=== PATIENT | female | born 1985 | race Caucasian/White ===

== ENCOUNTER → 2018-09-17 09:35 | Outpatient (CLI) | payer OTHER, SELFPAY ==
[2018-09-17 10:29] LABS: Add Manual Diff / Slide Review NO; Basophils Absolute Auto 0 /uL (0-100); Basophils Percent Auto 0.3 % (0-2); Eosinophils Absolute Auto 100 /uL (0-450); Eosinophils Percent Auto 1.6 % (2-4); Hematocrit 42.5 % (36-46); Hemoglobin 14.3 g/dL (12.0-16.0); Lymphocytes Absolute Auto 800 /uL (1100-4500); Mean Corpuscular HGB Conc 33.7 % (30-36); Mean Corpuscular Hemoglobin 29.9 PG (26-34); Mean Corpuscular Volume 88.7 fL (80-100); Monocytes Absolute Auto 600 /uL (0-900); Monocytes Percent Auto 14.3 % (3-14); Neutrophils Absolute Auto 2700 /uL (1500-7000); Neutrophils Percent Auto 63.8 % (50-75); Platelet Count 214 X10^3/uL (150-400); Red Blood Cell Count 4.79 X10^6/uL (4.0-5.2); Red Cell Distribution Width 12.7 % (11.6-14.8); White Blood Cell Count 4.2 X10^3/uL (4.5-11.0)
[2018-09-17 11:18] LABS: Hepatitis B Surface Antigen NEGATIVE s/c (NEGATIVE); Rubella Antibody IgG 66.5 IU/mL (>15)
[2018-09-17 11:37] LABS: HIV 1 and 2 Antibody NEGATIVE (NEGATIVE); Hep C Virus Ab w/Reflex Quant NEGATIVE s/c (NEGATIVE)
[2018-09-17 12:42] LABS: Appearance Urine UA CLEAR; Bilirubin Urine UA NEGATIVE (NEGATIVE); Color Urine UA YELLOW; Glucose Urine UA NEGATIVE (Negative); Ketones Urine UA NEGATIVE (NEGATIVE); Leukocyte Esterase Urine UA TRACE (NEGATIVE); Nitrite Urine UA NEGATIVE (Negative); Occult Blood Urine UA TRACE-LYSED (Negative); Protein Urine UA NEGATIVE (Negative); Urobilinogen Urine UA 0.2 E.U./dL (0.2); pH Urine UA 6.5 (4.5-8.0)
[2018-09-17 12:57] LABS: Bacteria Urine Many (>30); Culture Indicated Urine Specimen Cultured; RBC Urine 0-1/HPF (0-5/HPF); Squamous Epithelial Cell Urine 0-1 /HPF (0-5/HPF); Transitional Epi Cells Urine 0-1/HPF (0-5/HPF); WBC Urine 0-1/HPF (0-5/HPF)
[2018-09-19 15:18] LABS: RPR Screen Nonreactive (Nonreactive)
== END ==
PROVIDERS: Family Provider Family Medicine; PCP Family Medicine; Visit Provider Family Medicine
DX: Z34.81 Encounter for supervision of other normal pregnancy, first trimester (principal)
CPT/HCPCS: 36415; 80055; 81003; 81015; 86703; 86787; 86803; 86850; 86900; 86901; 87086

== ENCOUNTER → 2018-12-11 08:49 | Outpatient (CLI) | payer OTHER, SELFPAY ==
--- NOTE | 2018-12-11 08:50 | DI.US.S_ITS ---
PROCEDURE: US OB >= 14 WEEKS FETUS INDICATIONS: ANATOMY OUTSIDE/PRIOR DATING DATA: Last menstrual period (LMP): 07/23/18. LMP-based estimated date of delivery (SAHARA): 04/29/19. First dating scan (date and location): 12/11/18. Estimated date of delivery (SAHARA) from first dating scan: 05/01/19. TECHNIQUE: Real-time scanning was performed of the fetus, with image documentation and biometric measurements. Endovaginal scanning: No COMPARISON: None. FINDINGS: General: A single living intrauterine gestation is present. Presentation: Vertex. Placenta: Placental position is anterior, without previa. Amniotic fluid index: 13.7 cm, normal range is 5-24 cm. heart rate: 147 beats per minute. Maternal cervical canal: 5.1 cm long. Normal lower limit is 2.5 cm. biometrics: Biparietal diameter: 19 weeks 5 days Head circumference: 19 weeks 6 days Abdominal circumference: 20 weeks 5 days Femur length: 19 weeks 2 days Estimated gestational age from initial scan: not applicable. Composite gestational age from present scan: 19 weeks 6 days Estimated weight and percentile: 330 g; 41st percentile Measurement variability for biometric dating: +/- 7 days from 14 weeks to 15 weeks 6 days gestation, +/- 10 days from 16 weeks to 21 weeks 6 days gestation, +/- 2 weeks from 22 weeks to 27 weeks 6 days gestation, +/- 3 weeks for 28 weeks gestation or later. weight reference: 4500 g or EFW >90/95% is considered macrosomia or large for gestational age. EFW <10% is small for gestational age. EFW 5% or less is considered intra-uterine growth restriction. Anatomic survey: Neuro: Ventricles are non-dilated at less than 10 mm. Cisterna magna is normal at 3-11 mm. Cerebellum is normal in size and morphology. Nuchal skin fold: Normal at less than 6 mm between 14-21 weeks gestational age. Face: Nose and lips, facial profile are normal. Spine: No evidence for spina bifida. Heart: 4-chambered heart is present, with normal ventricular outflow tracts. Diaphragm: Diaphragm is intact. Stomach: Left-sided stomach is present. Kidneys: No hydronephrosis. Normal is less than 5 mm in 2nd trimester, less than 7 mm in 3rd trimester. Cord: 3-vessel cord has orthotopic insertion. Bladder: Normal in size. Extremities: All 4 extremities identified. IMPRESSION: 1. Single living IUP with mean composite gestational age of 19 weeks 6 days corresponding to ultrasound SAHARA of 05/01/19. 2. Normal anatomic survey. Dictated by: Van EID Interpreted: Sydnie Alexis MD on 12/11/2018 at 10:15 Approved by: Sydnie Alexis M.D. on 12/11/2018 at 13:15
== END ==
PROVIDERS: PCP Family Medicine; Visit Provider Family Medicine
DX: Z36.89 Encounter for other specified antenatal screening (principal); Z3A.19 19 weeks gestation of pregnancy
CPT/HCPCS: 76811

== ENCOUNTER → 2019-02-04 09:53 | Outpatient (CLI) | payer OTHER, SELFPAY ==
[2019-02-04 11:25] LABS: Hematocrit 36.3 % (36-46); Hemoglobin 12.1 g/dL (12.0-16.0)
[2019-02-04 11:47] LABS: GTT (PREG) 1 Hour PP 50gm Dose 118 mg/dL (76-139)
== END ==
PROVIDERS: PCP Family Medicine; Visit Provider Family Medicine
DX: Z34.82 Encounter for supervision of other normal pregnancy, second trimester (principal); Z3A.26 26 weeks gestation of pregnancy
CPT/HCPCS: 36415; 82950; 85014; 85018

== ENCOUNTER → 2019-02-27 14:19 | Outpatient (CLI) | payer OTHER, SELFPAY ==
--- NOTE | 2019-02-27 14:22 | DI.US.S_ITS ---
PROCEDURE: US OB LIMITED INDICATIONS: INCREASED SIZE FOR DATES OUTSIDE/PRIOR DATING DATA: Last menstrual period (LMP): 07/23/18. LMP-based estimated date of delivery (SAHARA): 04/29/19. First dating scan (date and location): 12/11/18. Estimated date of delivery (SAHARA) from first dating scan: 05/01/19. TECHNIQUE: Real-time scanning was performed of the fetus, with image documentation and biometric measurements. COMPARISON: [facility], , OB >= 14 WEEKS FETUS, 12/11/2018, 8:58. FINDINGS: General: A single living intrauterine gestation is present. Presentation: Vertex. Placenta: Placental position is anterior, without previa. Amniotic fluid index: 19.3 cm, normal range is 5-24 cm. heart rate: 152 beats per minute. Maternal cervical canal: 6.2 cm long. Normal lower limit is 2.5 cm. biometrics: Biparietal diameter: 32 weeks 6 days Head circumference: 35 weeks 3 days Abdominal circumference: 32 weeks 5 days Femur length: 30 weeks 1 day Estimated gestational age from initial scan: 31 weeks 0 days Composite gestational age from present scan: 32 weeks 6 days Estimated weight and percentile: 1932 g; 79 percentile Measurement variability for biometric dating: +/- 7 days from 14 weeks to 15 weeks 6 days gestation, +/- 10 days from 16 weeks to 21 weeks 6 days gestation, +/- 2 weeks from 22 weeks to 27 weeks 6 days gestation, +/- 3 weeks for 28 weeks gestation or later. weight reference: 4500 g or EFW >90/95% is considered macrosomia or large for gestational age. EFW <10% is small for gestational age. EFW 5% or less is considered intra-uterine growth restriction. Other: Not applicable. IMPRESSION: Single living IUP redemonstrated and interval growth is within normal limits. Dictated by: Van EID Interpreted: Jerzy Alonso MD on 02/27/2019 at 15:48 Approved by: Elijah Rapp M.D. on 03/03/2019 at 9:34
== END ==
PROVIDERS: PCP Family Medicine; Visit Provider Family Medicine
DX: Z36.88 Encounter for antenatal screening for fetal macrosomia (principal); Z3A.31 31 weeks gestation of pregnancy
CPT/HCPCS: 76815

== ENCOUNTER → 2019-04-06 11:22 | Outpatient (CLI) | payer OTHER, SELFPAY ==
[2019-04-07 15:19] LABS: Strep Grp B PCR NEG for Grp B Strep
== END ==
PROVIDERS: PCP Family Medicine; Visit Provider Family Medicine
DX: Z34.83 Encounter for supervision of other normal pregnancy, third trimester (principal)
CPT/HCPCS: 87653

== ENCOUNTER 2019-04-21 02:46 | Inpatient (IN) | payer OTHER, SELFPAY ==
--- NOTE | 2019-04-21 04:18 | PM.HP.1 ---
History of Present Illness History of Present Illness Date Patient Seen: 04/21/19 Time Patient Seen: 04:18 Chief complaint: Evaluation of Labor Narrative: Patient is a 34-year-old G3 para 2 with an estimated due date of 04/29/2019 consistent with LMP and early ultrasound. Patient had care which started 8 weeks. She had routine follow-up. During her care says some problems with mild anxiety and depression. In saw counselors for few visits. Patient elected not to do medication during her . Her labs showed blood type A positive antibody screen negative. VDRL nonreactive hepatitis-B surface antigen negative HIV negative GC chlamydia negative rubella immune and varicella immune. Patient had follow-up hemoglobin hematocrit 36.3 and 12.1 Claritza 1 hour glucose screen of 118. Patient had a normal 20 week ultrasound with normal anatomy scan. Patient's labor started approximately 10:00 a.m. this evening with mild intermittent contractions and progressed throughout the night. Patient arrived on the labor and delivery floor at approximately 3:00 a.m. britnay. Patient states that she has not had any leaking of fluid blood no fevers or chills. On examination by the nurse she was diagnosed to be 9 cm and a bulging bag. heart runs with the 140 range. I was called in to assess the patient. Her history this is her 3rd previous pregnancies were both vaginal 8 lb 13 oz in a trauma lb 12 oz 1st 1 natural 2nd 1 with epidural. No complications or problems during those pre put VS pregnancies. Patient's past medical history allergy history includes latex allergies migraine headaches history of anemia and cranial synostosis Gynecological history patient denies any history of gynecological infections abnormal Pap smears or gynecological surgeries other than vaginal bursa. Social history patient denies smoking alcohol or recreational drug use. 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 Meds Home Medications and Allergies Home Medications Medication Instructions Recorded Confirmed Type prenat.vits,delon,phe-kiqx-ertmp 1 tab PO DAILY 01/20/19 03/23/19 History clobetasol 0.05 % topical cream 0.05 % TOPICAL BID #60 gm 04/14/19 04/14/19 Rx ketoconazole 2 % topical cream 2 % TOPICAL BID #60 gm 04/14/19 04/14/19 Rx Allergies Allergy/AdvReac Type Severity Reaction Status Date / Time No Known Drug Allergies Allergy Unknown Verified 04/06/19 11:39 [NO KNOWN DRUG ALLERGIES] Exam Narrative Exam Narrative: . General: Alert no apparent distress. Affect is appropriate. Britany it is uncomfortable. HEENT: Neck is supple without lymphadenopathy pupils equal round and reactive. Cardio: S1-S2 regular rate and rhythm. Respiratory: Lungs clear to auscultation. Abdomen: Gravid. Extremities: Normal deep tendon reflexes trace edema. Archie: Britany regularly every 3-5 minutes with 60 minute contractions moderate and strength. heart tones: Category 1 tracing heart tones 140 reactive strip Vaginal exam anterior lip. The ruptured with clear fluid on my exam Assessment & Plan Assessment & Plan narrative: 34-year-old G3 para 2 at 39 weeks gestational age with an estimated due date of April 29 2019. She comes in in active labor at 9+ cm with bulging bag. Patient will be admitted to the Center. Admission orders were written for. Consents were obtained. Rupture of fluids after placement of IV and laboratory drawn by me. Clear fluid. Category 1 tracing. Expectant management. Patient would like to continue with natural childbirth. Her GBS status is negative.
[2019-04-21] MEDS: OXYTOCIN 10 UNIT/ML VIAL IM (04:40)
--- NOTE | 2019-04-21 04:43 | P.PCN_ITS ---
Procedures Date/Time Date of procedure: 04/21/19 Time of procedure: 04:43 General Procedure description: Vaginal delivery note Stage I of labor approximately 6 hours. Patient labored at home and came to the labor and delivery floor at approximately 3:00 a.m.. She was 9 cm with a bulging bag. heart tones were category 1 vital signs were stable patient was afebrile labs show GBS status was negative. IVs was started blood was drawn. Patient requested natural childbirth. During stage I of labor. Vital signs remained stable category 1 tracing during the stage I of labor while she was on the monitor here in the hospital. His initial difficulty in getting some IV started but then that was rectified. Patient was NPO given IV fluids. Informed consent were obtained and signed during stage I. Past medical social hi story and care was reviewed. Patient then had rupture of membranes with clear amniotic fluid and became complete. Stage II of labor category 1 and category 2 tracing. Approximately 25 minutes. Patient made good good descent down through the canal. Patient had good progressing and progress. heart tones were reassuring. Mom's vital signs remained stable. She was afebrile. She had rapid descent of the baby down through the canal. Baby was delivered in the vertex position with occiput anterior. At the delivery of the head there was found to be a new loose nuchal cord which was then easily reduced over the top of the baby's head and then baby delivered spontaneously with 1 push. There was no signs of shoulder dystocia. Afterwards baby was doing well and mom was resting comfortably. Stage III of labor. Approximately 10 minutes. Mom was given IM Pitocin. She had delivery of intact placenta with three-vessel cord. There are no signs of odor or infection. Placenta was easily removed and it was intact. Bleeding was anticipated approximately 300 cc. Mom and baby were resting comfortably. Apgars were estimated to be 8 and 9. weight is not been done yet. Mom's anticipating breast-feeding. Routine care orders were written for.
[2019-04-21 05:08] LABS: Add Manual Diff / Slide Review NO; Basophils Absolute Auto 0 /uL (0-100); Basophils Percent Auto 0.2 % (0-2); Eosinophils Absolute Auto 0 /uL (0-450); Eosinophils Percent Auto 0.2 % (2-4); Hematocrit 37.5 % (36-46); Hemoglobin 12.4 g/dL (12.0-16.0); Lymphocytes Absolute Auto 1600 /uL (1100-4500); Lymphocytes Percent Auto 12.1 % (25-40); Mean Corpuscular Hemoglobin 29.3 PG (26-34); Mean Corpuscular Volume 88.9 fL (80-100); Monocytes Absolute Auto 600 /uL (0-900); Monocytes Percent Auto 4.8 % (3-14); Neutrophils Absolute Auto 10700 /uL (1500-7000); Neutrophils Percent Auto 82.7 % (50-75); Platelet Count 215 X10^3/uL (150-400); Red Blood Cell Count 4.22 X10^6/uL (4.0-5.2); Red Cell Distribution Width 14.9 % (11.6-14.8); White Blood Cell Count 12.9 X10^3/uL (4.5-11.0)
[2019-04-21] MEDS: KETOROLAC 30 MG/ML VIAL IV (06:02)
[2019-04-21 09:47] VITALS: BP 138/81
[2019-04-21] MEDS: IBUPROFEN 600 MG TABLET PO ×2 (12:23→18:29)
[2019-04-21] MEDS: DOCUSATE 100 MG CAPSULE PO (18:29)
[2019-04-22] MEDS: IBUPROFEN 600 MG TABLET PO ×2 (00:11→06:35)
[2019-04-22 05:39] LABS: Thyroid Stimulating Hormone 1.85 uIU/mL (0.47-4.68)
[2019-04-22] MEDS: DOCUSATE 100 MG CAPSULE PO (06:35)
--- NOTE | 2019-04-22 08:19 | PM.DS.1 ---
History of Present Illness History of Present Illness Chief complaint: Labor & Delivery Narrative: Patient is a 34-year-old G3 para 2 with an estimated due date of 04/29/2019 consistent with LMP and early ultrasound. Patient had care which started 8 weeks. She had routine follow-up. During her care says some problems with mild anxiety and depression. In saw counselors for few visits. Patient elected not to do medication during her . Her labs showed blood type A positive antibody screen negative. VDRL nonreactive hepatitis-B surface antigen negative HIV negative GC chlamydia negative rubella immune and varicella immune. Patient had follow-up hemoglobin hematocrit 36.3 and 12.1 Claritza 1 hour glucose screen of 118. Patient had a normal 20 week ultrasound with normal anatomy scan. Patient's labor started approximately 10:00 a.m. this evening with mild intermittent contractions and progressed throughout the night. Patient arrived on the labor and delivery floor at approximately 3:00 a.m. britany. Patient states that she has not had any leaking of fluid blood no fevers or chills. On examination by the nurse she was diagnosed to be 9 cm and a bulging bag. heart runs with the 140 range. I was called in to assess the patient. Her history this is her 3rd previous pregnancies were both vaginal 8 lb 13 oz in a trauma lb 12 oz 1st 1 natural 2nd 1 with epidural. No complications or problems during those pre put VS pregnancies. Patient's past medical history allergy history includes latex allergies migraine headaches history of anemia and cranial synostosis Gynecological history patient denies any history of gynecological infections abnormal Pap smears or gynecological surgeries other than vaginal bursa. Social history patient denies smoking alcohol or recreational drug use. 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 Discharge Providers Provider Date of admission: 04/21/19 02:46 Discharge Date: 04/22/19 Primary care physician: Deep Stewart MD Consults: 04/22/19 04:40 Consult to Director Sales And Marketing Routine Comment: Discharge provider: Deep Stewart MD Summary Hospital Course Discharge Diagnosis: Delivery of viable male infant Routine care Hospital Course: Delivery of viable male fleas see procedure note and it admission history of present illness. Mom did great during her hospital stay normal vital signs. Laboratory tests were normal. Normal urination. Patient bleeding and pain was well controlled. Ambulating well. Tolerating diet. Exam Narrative Exam Narrative: General: Alert no apparent distress. Affect is appropriate. Britany it is uncomfortable. HEENT: Neck is supple without lymphadenopathy pupils equal round and reactive. Cardio: S1-S2 regular rate and rhythm. Respiratory: Lungs clear to auscultation. Abdomen: Uterus firm. Incision clean dry and intact. Extremities: Normal deep tendon reflexes trace edema. Objective Labs Result Diagrams: 04/21/19 04:50 Labs: Laboratory Results - last 24 hr 04/22/19 04:00 TSH 1.85 Discharge Plan Discharge Plan Patient Disposition: Home Discharge orders & Medications Prescriptions: New docusate sodium [DOK] 100 mg Capsule 100 mg PO BID Qty: 30 RF: 0 ibuprofen 600 mg Tablet 600 mg PO Q6HR PRN (Reason: Pain, Mild (1-3)) Qty: 30 RF: 0 Continued prenat.vits,delon,wem-[id number]-vsuco Tablet 1 tab PO DAILY RF: 0 clobetasol [Temovate] 0.05 % cream 0.05 % Topical BID Qty: 60 RF: 1 ketoconazole 2 % cream 2 % Topical BID Qty: 60 RF: 1 Follow up/Referrals: Deep Stewart MD [Primary Care Provider] - (Appointment with on Saturday, May at 2:45) Visit Report/Discharge Packet Instructions: DI for Labor and Delivery, Vaginal Stand Alone Forms: Discharge: Care Visit Report Forms: Patient Portal/API, Stroke Signs & Symptoms Discharge Data Primary Care Provider: Deep Stewart Discharges patient from system. Discharge Date/Time: 04/22/19 12:58
[2019-04-22 09:43] VITALS: BP 99/65; PULSE 75; RESP 16; TEMP 37.3
== END 2019-04-22 12:58 | disposition home or self-care (01) | DRG 807 ==
PROVIDERS: Admitting Provider Family Medicine; PCP Family Medicine; Visit Provider Family Medicine
DX: O80 Encounter for full-term uncomplicated delivery (principal); Z37.0 Single live birth; Z3A.39 39 weeks gestation of pregnancy
CPT/HCPCS: 36415; 59050; 59400; 84443; 85025; 86850; 86900; 86901; G0379; J1885; J2590

== ENCOUNTER 2019-11-02 09:45 | Outpatient (RCR) | payer BC, OTHER, SELFPAY ==
--- NOTE | 2019-09-22 16:30 | PT.OIE ---
Current Diagnoses Other female genital prolapse (09/22/19) Abnormal posture (09/22/19) Weakness (09/22/19) Visit Care Team Role Provider Type Deep Stewart MD Attending Provider Physician Primary Care Provider Referring Provider Specialty: Family Practice Address: [address] [place] [address], [id number] Email: [email or web address] Physical Therapy Initial Evaluation PT-OP-A Visit Information Start: 09/18/19 19:26 Freq: Status: Active Protocol: Document 09/22/19 09:54 LRN (Rec: 09/22/19 10:43 LRN [id number]) Out-Patient Physical Therapy Visit Information Visit Information Visit Type Initial Evaluation Visit Start Time 09:54 Visit Stop Time 10:43 Total Visit Minutes 49 Visit Number 1 Evaluation Information Evaluation Date 09/22/19 Precautions Precautions 5 months ago. PT-OP-B Current Condition Start: 09/18/19 19:26 Freq: Status: Active Protocol: Document 09/22/19 09:54 LRN (Rec: 09/22/19 10:43 LRN [id number]) Current Condition History of Current Condition Onset Date 04/21/2019 Current Complaints No symptoms or pain. If full bladder and sneezes crosses legs. History of Current Condition Has had initially with all children full loss of bladder control a couple of weeks post - and a little leakage. Currently she is a mother of 3 children: 5 months old, 3 & 5 yr old. Pt states she requested PT because she is worried about stories of post mary problems. She states now when she does a sit-up her stomach bulges out. She states she leaks with bladder full and is not able to hold her urine as long as she previously did. Her activity level is that she walks with her children daily. She reports she defecates daily and sometimes must strain to empty. She takes a stool softner sporadically ( when needing them). 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 Treatment Goals Patient/Caregiver Goals Pt goal is to decrease times between voiding. Not have to cross legs with sneezing or coughing with variable bladder conditions (full vs empty). Get post- care. Learn how to prevent bladder leakage bladder problems in the future. And to get post mental health care (she has therapist currently). Prior Functional Status Baseline Function- ADL's Independent Baseline Function- Mobility Independent Baseline Function- Other Voiding 3-5 hrs between voiding. Current Functional Impairments (Reported) Functional Limitations- ADL's Increased frequency of voiding (every 2-3 hrs). Occasional constipation. Crosses legs with coughing or sneezing, possibly to avoid urinary leaking. Functional Limitations- Other Poor hydration. Personal Factors Other Personal Factors That May Effect Mother of 3 children under the Therapy/Recovery age of 6. Lives in [place]. PT-OP-C Subjective Start: 09/18/19 19:26 Freq: Status: Active Protocol: Document 09/22/19 09:54 LRN (Rec: 09/22/19 20:12 LRN [id number]) Patient Questionnaires Pelvic Pain and Urgency/Frequency Patient Symptom Scale Pelvic Pain Score 0 OP-PT Pain Assessment Pain Assessment Grid Paper Pain Assessment Grid Completed Yes Comments Pain Comments Pt notes on Pain grid no pain. PT-OP-I Pelvic Floor Start: 09/18/19 19:26 Freq: Status: Active Protocol: Document 09/22/19 09:54 LRN (Rec: 09/22/19 20:12 LRN [id number]) Pelvic Floor Assessment Urine Pelvic Floor Surgery Yes: Stitches for tearing during baby deliveries x 2 Urinary Symptoms Prolapse Leakage Size Small Leakage Cause Cough,Sneeze Other Leakage Causes Full Bladder Urine Pad Type Panty Liner Bowel Other Bowel Symptoms Occasional Constipation Pelvic Clock Pelvic Clock 12-3 Atrophy Pelvic Clock 3-6 Atrophy Pelvic Clock 6-9 Atrophy Pelvic Clock 9-12 Atrophy Prolapse Cystocele Grade 2 Comments Pelvic Floor Comments Minimal perineal descent. PT-OP-J Posture/Palpation/Skin Start: 09/18/19 19:26 Freq: Status: Active Protocol: Document 09/22/19 09:54 LRN (Rec: 09/22/19 20:12 LRN [id number]) Posture Evaluation Position Standing Evaluation View Posterior & Lateral L-Spine Posture Increased Lordosis,Flexible Scoliosis on (L) Pelvis Posture Anteriorly Tilted Palpation Assessment Location Abdomen Palpation Location Rectus Diastasis Palpation Details Umbilicus 5 above: Closed Umbilicus 4 above: 1 finger width (~2.5 cm) Umbilicus 3 above: 2.5 finger widths Umbilicus 2 above: 3 finger widths Umbilicus 1 above: 4 finger widths Umbilicus: 4 finger widths. Umbilicus: 1 below: 3.5 finger widths Umbilicus: 2 below: 2 finger widths Umbilicus: 3 below: 1.5 finger widths Umbilicus: 4 below: 0 finger widths Umbilicus: below: finger widths PT-OP-K Range of Motion Start: 09/18/19 19:26 Freq: Status: Active Protocol: Document 09/22/19 09:54 LRN (Rec: 09/22/19 20:12 LRN [id number]) Lumbar Spine Range of Motion Lumbar Spine Active Degrees Testing Position Standing Flexion 70 Extension 35 Lateral Flexion Left 20 Lateral Flexion Right 20 ROM Limitations Soft Tissue Tightness Hip Goniometric Range of Motion Hip Right Passive Testing Position Supine Straight Leg Raise 70 Abduction 20 Internal Rotation 40 External Rotation 65 Left Passive Testing Position Supine Straight Leg Raise 70 Abduction 30 Internal Rotation 46 External Rotation 75 PT-OP-M Strength Start: 09/18/19 19:26 Freq: Status: Active Protocol: Document 09/22/19 09:54 LRN (Rec: 09/22/19 20:13 LRN [id number]) Hip Strength Hip Manual Muscle Testing Right Flexion (L2) 5 Normal External Rotation 5 Normal Internal Rotation 3 Fair Comments 5/5 except as listed above. Left Flexion (L2) 5 Normal External Rotation 4 Good Internal Rotation 3 Fair Comments 5/5 except as listed above. PT-OP-Q Treatments Start: 09/18/19 19:26 Freq: Status: Active Protocol: Document 09/22/19 09:54 LRN (Rec: 09/22/19 20:12 LRN [id number]) Therapeutic Exercises Supine Exercises Kegel Long Hold Supine Exercise Name Long Hold PF Reps/Minutes 3 holds Comments Determined tolerance for long hold and I/S pt in Kegel. Kegel Quick Flicks Supine Exercise Name Quick Flicks Reps/Minutes 10x Self-Care/Home Management Treatment Education Patient Education Home Exercise Program Other Education Educated pt in use of Bladder Diary and requested pt complete during the week. Discribed how to use and complete the diary forms. Educated and discussed outcome of evaluation and goals of therapy. Activities Self-Care/Home Management Activities Issued & reviewed HEP: Kegels of Quick Flicks and Long holds. PT-OP-T Assessment and Plan Start: 09/18/19 19:26 Freq: Status: Active Protocol: Document 09/22/19 09:54 LRN (Rec: 09/22/19 19:58 LRN [id number]) Physical Therapy Assessment Rehab Potential Rehabilitation Potential Good Evaluation Complexity Number of Personal Factors/Comorbidities 1-2 Number of Body Systems Impaired 4 or More Clinical Presentation at Evaluation Evolving Impairments Impairments Functional Mobility,Posture, ROM,Strength Other Impairments Frequency of urination. Goals Four Impairment Pt substitutes TA, hips for PF contraction Short Term Goal (STG) Pt educated in isolating PF contraction. STG Duration 10/13/19 Intermediate Goal (LTG) Pt will be able to isolate a PF contraction. LTG Duration 11/22/19 Three Impairment Poor abdominal control Short Term Goal (STG) Pt will be able to perform a Transverse abdominal contraction to help prevent doming and demonstrate proper body mechanics and breathing. STG Duration 10/20/19 Conservation Science Officer Goal (LTG) Pt will demonstrate improved abdominal core control per reduction of her Rectus diastasis. LTG Duration 11/22/19 Two Impairment PF weakness (Anterior/lateral tello 0/5, Posterior 1/5) Short Term Goal (STG) Pt will demonstrate improved PF strength of at least 1/5 in all areas. STG Duration 10/20/19 Conservation Science Officer Goal (LTG) Improve PF weakness to decrease frequency of urination. LTG Duration 11/22/19 One Impairment Lacks appropriate education & a self care HEP. Short Term Goal (STG) Pt will be educated in food/ fluid management to minimize bladder irritation & dec constipation onset. STG Duration 10/06/19 Conservation Science Officer Goal (LTG) Pt will be educated in a self care HEP to manage her PF weakness. LTG Duration 11/22/19 Assessment Summary Assessment Pt presents with a grade 2 cystocele in supine. Her pelvic floor is very weak with trace contraction noted only in the posterior aspect of her PF. The pt reports no noticeable symptoms except for frequency of urination. She prevents leakage of urine by having her legs crossed out of habit; therefore when coughing or sneezing she probably assists with her hip AD's to prevent leakage. She also has instability of her core with a Rectus Diastasis near the Umbilicus of 4 finger widths (~2.5 cm) above and 3 below. The pt will benefit from skilled physical therapy to help strengthen her core to provide stability to her Pelvic Floor (PF) and to improve the PF strength. The pt has occasional problems with constipation; therefore we will address this issue as it also relates to the PF. Physical Therapy Plan Frequency and Duration Frequency of Treatment 1x/Week Duration of Treatment 8 weeks Plan of Care Start Date 09/22/19 Plan of Care End Date 11/22/19 Next Visit Focus/Plan Next Note Type Treatment Note Next Visit Plan Review and discuss Bladder Diary, Educate pt on foods to avoid and discuss modifications needed to decrease constipation, EMG Biofeedback assessment, Transfer training (to minimize DR), Breathing training, HEP: hip stretches for adductors and IR's and hamstrings; strengthening hip IR's, L hip ER's, TA & when doming decreased-trunk rotators, K-tape patch test.
--- NOTE | 2019-09-28 14:05 | PT.OTN ---
Current Diagnoses Other female genital prolapse (09/28/19) Abnormal posture (09/28/19) Weakness (09/28/19) Physical Therapy Treatment Note PT-OP-A Visit Information Start: 09/18/19 19:26 Freq: Status: Active Protocol: Document 09/28/19 12:47 LRN (Rec: 09/28/19 14:05 LRN [id number]) Out-Patient Physical Therapy Visit Information Visit Information Visit Type Treatment Note Visit Start Time 12:47 Visit Stop Time 13:38 Total Visit Minutes 51 Visit Number 2 Evaluation Information Evaluation Date 09/22/19 Precautions Precautions 5 months ago. PT-OP-B Current Condition Start: 09/18/19 19:26 Freq: Status: Active Protocol: Document 09/22/19 09:54 LRN (Rec: 09/22/19 10:43 LRN [id number]) Current Condition History of Current Condition Onset Date 04/21/2019 Current Complaints No symptoms or pain. If full bladder and sneezes crosses legs. History of Current Condition Has had initially with all children full loss of bladder control a couple of weeks post - and a little leakage. Currently she is a mother of 3 children: 5 months old, 3 & 5 yr old. Pt states she requested PT because she is worried about stories of post mary problems. She states now when she does a sit-up her stomach bulges out. She states she leaks with bladder full and is not able to hold her urine as long as she previously did. Her activity level is that she walks with her children daily. She reports she defecates daily and sometimes must strain to empty. She takes a stool softner sporadically ( when needing them). 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 Treatment Goals Patient/Caregiver Goals Pt goal is to decrease times between voiding. Not have to cross legs with sneezing or coughing with variable bladder conditions (full vs empty). Get post- care. Learn how to prevent bladder leakage bladder problems in the future. And to get post mental health care (she has therapist currently). Prior Functional Status Baseline Function- ADL's Independent Baseline Function- Mobility Independent Baseline Function- Other Voiding 3-5 hrs between voiding. Current Functional Impairments (Reported) Functional Limitations- ADL's Increased frequency of voiding (every 2-3 hrs). Occasional constipation. Crosses legs with coughing or sneezing, possibly to avoid urinary leaking. Functional Limitations- Other Poor hydration. Personal Factors Other Personal Factors That May Effect Mother of 3 children under the Therapy/Recovery age of 6. Lives in [place]. PT-OP-C Subjective Start: 09/18/19 19:26 Freq: Status: Active Protocol: Document 09/28/19 12:47 LRN (Rec: 09/28/19 14:05 LRN [id number]) OP-PT Subjective Patient Comments Patient Comments States she did the bladder diary. Doesn't have a problem , just interested in learning what to do to prevent a problem. PT-OP-I Pelvic Floor Start: 09/18/19 19:26 Freq: Status: Active Protocol: Document 09/28/19 12:47 LRN (Rec: 09/28/19 14:05 LRN [id number]) Pelvic Floor Assessment SEMG (uV) Baseline 7.2 Quick Contraction 10.3 10 Second Contraction 11.2 Relaxation Poor/Slow Holding Poor/Slow Stability of Hold Poor/Slow SEMG Stability of Rest Poor/Slow Comments Pelvic Floor Comments Pt in jeans, legs on bolster, pt told to uncross legs. Quick Flicks (20 reps): Resting Avg Long Holds: 10 reps: Work Avg : 11.2 uV's Resting Av.7 uVs 20 reps: Work Av.7 uV's Resting Av.3 uVs PT-OP-J Posture/Palpation/Skin Start: 09/18/19 19:26 Freq: Status: Active Protocol: Document 09/22/19 09:54 LRN (Rec: 09/22/19 20:12 LRN [id number]) Posture Evaluation Position Standing Evaluation View Posterior & Lateral L-Spine Posture Increased Lordosis,Flexible Scoliosis on (L) Pelvis Posture Anteriorly Tilted Palpation Assessment Location Abdomen Palpation Location Rectus Diastasis Palpation Details Umbilicus 5 above: Closed Umbilicus 4 above: 1 finger width (~2.5 cm) Umbilicus 3 above: 2.5 finger widths Umbilicus 2 above: 3 finger widths Umbilicus 1 above: 4 finger widths Umbilicus: 4 finger widths. Umbilicus: 1 below: 3.5 finger widths Umbilicus: 2 below: 2 finger widths Umbilicus: 3 below: 1.5 finger widths Umbilicus: 4 below: 0 finger widths Umbilicus: below: finger widths PT-OP-K Range of Motion Start: 09/18/19 19:26 Freq: Status: Active Protocol: Document 09/22/19 09:54 LRN (Rec: 09/22/19 20:12 LRN [id number]) Lumbar Spine Range of Motion Lumbar Spine Active Degrees Testing Position Standing Flexion 70 Extension 35 Lateral Flexion Left 20 Lateral Flexion Right 20 ROM Limitations Soft Tissue Tightness Hip Goniometric Range of Motion Hip Right Passive Testing Position Supine Straight Leg Raise 70 Abduction 20 Internal Rotation 40 External Rotation 65 Left Passive Testing Position Supine Straight Leg Raise 70 Abduction 30 Internal Rotation 46 External Rotation 75 PT-OP-M Strength Start: 09/18/19 19:26 Freq: Status: Active Protocol: Document 09/22/19 09:54 LRN (Rec: 09/22/19 20:13 LRN [id number]) Hip Strength Hip Manual Muscle Testing Right Flexion (L2) 5 Normal External Rotation 5 Normal Internal Rotation 3 Fair Comments 5/5 except as listed above. Left Flexion (L2) 5 Normal External Rotation 4 Good Internal Rotation 3 Fair Comments 5/5 except as listed above. PT-OP-Q Treatments Start: 09/18/19 19:26 Freq: Status: Active Protocol: Document 09/28/19 12:47 LRN (Rec: 09/28/19 14:05 LRN [id number]) Therapeutic Exercises Supine Exercises Kegel Long Hold Supine Exercise Name Long Hold PF Reps/Minutes 10 holds x 20 Comments V cuing for pt to isolate ms from TA/gluts & breath holding , & unit trng Kegel Quick Flicks Supine Exercise Name Quick Flicks Reps/Minutes 20x Comments Pt needed training on EMG unit training. Neuro Re-Education Treatment Other Activities EMG Biofeedback Details Resting Tone review & discussion Reps/Duration 3' Comments Pt positioning needed for resting and education in positioning for good resting tone assessment. Self-Care/Home Management Treatment Education Other Education Review of Bladder Diary with pt education in modifications to fluid intake. Discussed foods that cause bladder irritation with handout issued. Activities Self-Care/Home Management Activities Discussed amount of fluid intake normal for her weight of 226# (~113 oz, pt is drinking close to the amount). I/S pt in Happy Baby Pose stretch. Encouraged pt to focus on relaxation after contraction and awareness of relaxation. Quick Review of HEP to cont: Kegels for relaxation phase, deep breathing/relaxation, & TA contraction. PT-OP-T Assessment and Plan Start: 09/18/19 19:26 Freq: Status: Active Protocol: Document 09/28/19 12:47 LRN (Rec: 09/28/19 14:05 LRN [id number]) Physical Therapy Assessment Goals Four Impairment Pt substitutes TA, hips for PF contraction Short Term Goal (STG) Pt educated in isolating PF contraction. (09/28/19: Pt educated in isolation of PF, but pt needs cuing to breath). STG Duration 10/13/19 (09/28/19: Goal partially met) Java Enterprise Architect Goal (LTG) Pt will be able to isolate a PF contraction. LTG Duration 11/22/19 Three Impairment Poor abdominal control Short Term Goal (STG) Pt will be able to perform a Transverse abdominal contraction to help prevent doming and demonstrate proper body mechanics and breathing. STG Duration 10/20/19 Fpc Goal (LTG) Pt will demonstrate improved abdominal core control per reduction of her Rectus diastasis. LTG Duration 11/22/19 Two Impairment PF weakness (Anterior/lateral tello 0/5, Posterior 1/5) Short Term Goal (STG) Pt will demonstrate improved PF strength of at least 1/5 in all areas. STG Duration 10/20/19 Java Enterprise Architect Goal (LTG) Improve PF weakness to decrease frequency of urination. LTG Duration 11/22/19 One Impairment Lacks appropriate education & a self care HEP. Short Term Goal (STG) Pt will be educated in food/ fluid management to minimize bladder irritation & dec constipation onset. STG Duration 10/06/19 Fpc Goal (LTG) Pt will be educated in a self care HEP to manage her PF weakness. LTG Duration 11/22/19 Assessment Summary Assessment Per EMG Biofeedback, pt has high resting tone and decreased PF strength of contraction. She uses her TA, mildly her Gluteals and breath holding to increase her PF contraction strength. Relaxation of her PF is needed to increase her strength of contraction overall. Physical Therapy Plan Frequency and Duration Frequency of Treatment 1x/Week Duration of Treatment 8 weeks Plan of Care Start Date 09/22/19 Plan of Care End Date 11/22/19 Next Visit Focus/Plan Next Note Type Treatment Note Next Visit Plan Discuss constipation effect on bladder & PF and discuss foods to minimize constipation . K-tape patch test. Transfer training (to minimize DR), TA strengthening, Breathing training, HEP: hip stretches for PF, adductors, IR's, and hamstrings; Strengthening hip IR's, L hip ER's, When doming better controlled add trunk rotators.
--- NOTE | 2019-10-06 17:25 | PT.OTN ---
Current Diagnoses Other female genital prolapse (10/06/19) Abnormal posture (10/06/19) Weakness (10/06/19) Physical Therapy Treatment Note PT-OP-A Visit Information Start: 09/18/19 19:26 Freq: Status: Active Protocol: Document 10/06/19 09:52 LRN (Rec: 10/06/19 10:32 LRN [id number]) Out-Patient Physical Therapy Visit Information Visit Information Visit Type Treatment Note Visit Start Time 09:52 Visit Stop Time 10:31 Total Visit Minutes 39 Visit Number 3 Evaluation Information Evaluation Date 09/22/19 Precautions Precautions 5 months ago. PT-OP-B Current Condition Start: 09/18/19 19:26 Freq: Status: Active Protocol: Document 09/22/19 09:54 LRN (Rec: 09/22/19 10:43 LRN [id number]) Current Condition History of Current Condition Onset Date 04/21/2019 Current Complaints No symptoms or pain. If full bladder and sneezes crosses legs. History of Current Condition Has had initially with all children full loss of bladder control a couple of weeks post - and a little leakage. Currently she is a mother of 3 children: 5 months old, 3 & 5 yr old. Pt states she requested PT because she is worried about stories of post mary problems. She states now when she does a sit-up her stomach bulges out. She states she leaks with bladder full and is not able to hold her urine as long as she previously did. Her activity level is that she walks with her children daily. She reports she defecates daily and sometimes must strain to empty. She takes a stool softner sporadically ( when needing them). 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 Treatment Goals Patient/Caregiver Goals Pt goal is to decrease times between voiding. Not have to cross legs with sneezing or coughing with variable bladder conditions (full vs empty). Get post- care. Learn how to prevent bladder leakage bladder problems in the future. And to get post mental health care (she has therapist currently). Prior Functional Status Baseline Function- ADL's Independent Baseline Function- Mobility Independent Baseline Function- Other Voiding 3-5 hrs between voiding. Current Functional Impairments (Reported) Functional Limitations- ADL's Increased frequency of voiding (every 2-3 hrs). Occasional constipation. Crosses legs with coughing or sneezing, possibly to avoid urinary leaking. Functional Limitations- Other Poor hydration. Personal Factors Other Personal Factors That May Effect Mother of 3 children under the Therapy/Recovery age of 6. Lives in [place]. PT-OP-C Subjective Start: 09/18/19 19:26 Freq: Status: Active Protocol: Document 10/06/19 09:52 LRN (Rec: 10/06/19 10:32 LRN [id number]) OP-PT Subjective Patient Comments Patient Comments Nothing to report, did stretches. PT-OP-I Pelvic Floor Start: 09/18/19 19:26 Freq: Status: Active Protocol: Document 09/28/19 12:47 LRN (Rec: 09/28/19 14:05 LRN [id number]) Pelvic Floor Assessment SEMG (uV) Baseline 7.2 Quick Contraction 10.3 10 Second Contraction 11.2 Relaxation Poor/Slow Holding Poor/Slow Stability of Hold Poor/Slow SEMG Stability of Rest Poor/Slow Comments Pelvic Floor Comments Pt in jeans, legs on bolster, pt told to uncross legs. Quick Flicks (20 reps): Resting Avg Long Holds: 10 reps: Work Avg : 11.2 uV's Resting Av.7 uVs 20 reps: Work Av.7 uV's Resting Av.3 uVs PT-OP-J Posture/Palpation/Skin Start: 09/18/19 19:26 Freq: Status: Active Protocol: Document 09/22/19 09:54 LRN (Rec: 09/22/19 20:12 LRN [id number]) Posture Evaluation Position Standing Evaluation View Posterior & Lateral L-Spine Posture Increased Lordosis,Flexible Scoliosis on (L) Pelvis Posture Anteriorly Tilted Palpation Assessment Location Abdomen Palpation Location Rectus Diastasis Palpation Details Umbilicus 5 above: Closed Umbilicus 4 above: 1 finger width (~2.5 cm) Umbilicus 3 above: 2.5 finger widths Umbilicus 2 above: 3 finger widths Umbilicus 1 above: 4 finger widths Umbilicus: 4 finger widths. Umbilicus: 1 below: 3.5 finger widths Umbilicus: 2 below: 2 finger widths Umbilicus: 3 below: 1.5 finger widths Umbilicus: 4 below: 0 finger widths Umbilicus: below: finger widths PT-OP-K Range of Motion Start: 09/18/19 19:26 Freq: Status: Active Protocol: Document 09/22/19 09:54 LRN (Rec: 09/22/19 20:12 LRN [id number]) Lumbar Spine Range of Motion Lumbar Spine Active Degrees Testing Position Standing Flexion 70 Extension 35 Lateral Flexion Left 20 Lateral Flexion Right 20 ROM Limitations Soft Tissue Tightness Hip Goniometric Range of Motion Hip Right Passive Testing Position Supine Straight Leg Raise 70 Abduction 20 Internal Rotation 40 External Rotation 65 Left Passive Testing Position Supine Straight Leg Raise 70 Abduction 30 Internal Rotation 46 External Rotation 75 PT-OP-M Strength Start: 09/18/19 19:26 Freq: Status: Active Protocol: Document 09/22/19 09:54 LRN (Rec: 09/22/19 20:13 LRN [id number]) Hip Strength Hip Manual Muscle Testing Right Flexion (L2) 5 Normal External Rotation 5 Normal Internal Rotation 3 Fair Comments 5/5 except as listed above. Left Flexion (L2) 5 Normal External Rotation 4 Good Internal Rotation 3 Fair Comments 5/5 except as listed above. PT-OP-Q Treatments Start: 09/18/19 19:26 Freq: Status: Active Protocol: Document 10/06/19 09:52 LRN (Rec: 10/06/19 10:32 LRN [id number]) Therapeutic Exercises Supine Exercises TA Supine Exercise Name TA Reps/Minutes 4' - 10 holds x 6 Comments Training needed for approximating rectus with TA, pt only able to hold 8 Therapeutic Activity Therapeutic Activity Sit<>Supine Name Sit<>Supine with LUmbar strap for core support Reps/Minutes 10' Comments Multiple attempts to determine best hand placement and method to transfer with idea of her baby next to her or on top of her. Also training for hand placement and strap placement and practice of log roll transfer. Manual Therapy Treatment Taping K-tape for DR Body Location Abdomen Treatment Focus Correction of DR Type of Tape Kinesio Tape Skin Inspection Good Self-Care/Home Management Treatment Education Patient Education Safety Other Education Educated pt in K-tape removal and signs of allergic reaction w/instructions to remove if allergic reaction occurs. Pt remove in 5 days or less. Discussed proper breathing with training for proper breathing with transfers, bending, lifting. Activities Self-Care/Home Management Activities Pt to remove K-tape in 5 days. PT-OP-T Assessment and Plan Start: 09/18/19 19:26 Freq: Status: Active Protocol: Document 10/06/19 09:52 LRN (Rec: 10/06/19 10:32 LRN [id number]) Physical Therapy Assessment Goals Four Impairment Pt substitutes TA, hips for PF contraction Short Term Goal (STG) Pt educated in isolating PF contraction. (09/28/19: Pt educated in isolation of PF, but pt needs cuing to breath). STG Duration 10/13/19 (09/28/19: Goal partially met) Aged Or Disabled Care Worker Goal (LTG) Pt will be able to isolate a PF contraction. LTG Duration 11/22/19 Three Impairment Poor abdominal control Short Term Goal (STG) Pt will be able to perform a Transverse abdominal contraction to help prevent doming and demonstrate proper body mechanics and breathing. STG Duration 10/20/19 Fdc Goal (LTG) Pt will demonstrate improved abdominal core control per reduction of her Rectus diastasis. LTG Duration 11/22/19 Two Impairment PF weakness (Anterior/lateral tello 0/5, Posterior 1/5) Short Term Goal (STG) Pt will demonstrate improved PF strength of at least 1/5 in all areas. STG Duration 10/20/19 Aged Or Disabled Care Worker Goal (LTG) Improve PF weakness to decrease frequency of urination. LTG Duration 11/22/19 One Impairment Lacks appropriate education & a self care HEP. Short Term Goal (STG) Pt will be educated in food/ fluid management to minimize bladder irritation & dec constipation onset. STG Duration 10/06/19 Fdc Goal (LTG) Pt will be educated in a self care HEP to manage her PF weakness. LTG Duration 11/22/19 Assessment Summary Assessment Pt has poor body mechanics for getting in/out of bed, but was able to perform properly to protecth her DR s/p training. She was able to perform a TA contraction without her abdomen doming; therefore showing improved core stability. Pt has good understanding of K-tape restrictions. Pt is progressing towards improved core stability. Physical Therapy Plan Frequency and Duration Frequency of Treatment 1x/Week Duration of Treatment 8 weeks Plan of Care Start Date 09/22/19 Plan of Care End Date 11/22/19 Next Visit Focus/Plan Next Note Type Treatment Note Next Visit Plan Assess response to K-tape, Educate & review constipation effect on bladder & PF and discussed foods to minimize constipation. Progress TA strengthening, HEP: hip stretches for PF, adductors, IR's, and hamstrings; Strengthening hip IR's, L hip ER's, When doming better controlled add trunk rotators.
--- NOTE | 2019-10-12 16:37 | PT.OTN ---
Current Diagnoses Other female genital prolapse (10/12/19) Abnormal posture (10/12/19) Weakness (10/12/19) Physical Therapy Treatment Note PT-OP-A Visit Information Start: 09/18/19 19:26 Freq: Status: Active Protocol: Document 10/12/19 15:18 LRN (Rec: 10/12/19 16:36 LRN [id number]) Out-Patient Physical Therapy Visit Information Visit Information Visit Type Treatment Note Visit Start Time 15:18 Visit Stop Time 16:16 Total Visit Minutes 58 Visit Number 4 Evaluation Information Evaluation Date 09/22/19 Precautions Precautions 5 months ago. PT-OP-B Current Condition Start: 09/18/19 19:26 Freq: Status: Active Protocol: Document 09/22/19 09:54 LRN (Rec: 09/22/19 10:43 LRN [id number]) Current Condition History of Current Condition Onset Date 04/21/2019 Current Complaints No symptoms or pain. If full bladder and sneezes crosses legs. History of Current Condition Has had initially with all children full loss of bladder control a couple of weeks post - and a little leakage. Currently she is a mother of 3 children: 5 months old, 3 & 5 yr old. Pt states she requested PT because she is worried about stories of post mary problems. She states now when she does a sit-up her stomach bulges out. She states she leaks with bladder full and is not able to hold her urine as long as she previously did. Her activity level is that she walks with her children daily. She reports she defecates daily and sometimes must strain to empty. She takes a stool softner sporadically ( when needing them). 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 Treatment Goals Patient/Caregiver Goals Pt goal is to decrease times between voiding. Not have to cross legs with sneezing or coughing with variable bladder conditions (full vs empty). Get post- care. Learn how to prevent bladder leakage bladder problems in the future. And to get post mental health care (she has therapist currently). Prior Functional Status Baseline Function- ADL's Independent Baseline Function- Mobility Independent Baseline Function- Other Voiding 3-5 hrs between voiding. Current Functional Impairments (Reported) Functional Limitations- ADL's Increased frequency of voiding (every 2-3 hrs). Occasional constipation. Crosses legs with coughing or sneezing, possibly to avoid urinary leaking. Functional Limitations- Other Poor hydration. Personal Factors Other Personal Factors That May Effect Mother of 3 children under the Therapy/Recovery age of 6. Lives in [place]. PT-OP-C Subjective Start: 09/18/19 19:26 Freq: Status: Active Protocol: Document 10/12/19 15:18 LRN (Rec: 10/12/19 16:36 LRN [id number]) OP-PT Subjective Patient Comments Patient Comments No changes. States the K-tape helped to facilitate her TA exercising. No questions regarding bowel care. PT-OP-I Pelvic Floor Start: 09/18/19 19:26 Freq: Status: Active Protocol: Document 10/12/19 15:18 LRN (Rec: 10/12/19 16:36 LRN [id number]) Pelvic Floor Assessment SEMG (uV) Baseline 3.8 Relaxation Good Holding Fair Stability of Hold Fair SEMG Stability of Rest Fair Comments Pelvic Floor Comments Pt in sweat pants, legs on bolster. Pt needed v. cuing to uncross legs. Long Holds: 10 reps: Work: 6. 9 mV's Rest: 3.2 mV's. 20 reps: 7.3 Work: mV's Rest: 3.2 mV's PT-OP-J Posture/Palpation/Skin Start: 09/18/19 19:26 Freq: Status: Active Protocol: Document 09/22/19 09:54 LRN (Rec: 09/22/19 20:12 LRN [id number]) Posture Evaluation Position Standing Evaluation View Posterior & Lateral L-Spine Posture Increased Lordosis,Flexible Scoliosis on (L) Pelvis Posture Anteriorly Tilted Palpation Assessment Location Abdomen Palpation Location Rectus Diastasis Palpation Details Umbilicus 5 above: Closed Umbilicus 4 above: 1 finger width (~2.5 cm) Umbilicus 3 above: 2.5 finger widths Umbilicus 2 above: 3 finger widths Umbilicus 1 above: 4 finger widths Umbilicus: 4 finger widths. Umbilicus: 1 below: 3.5 finger widths Umbilicus: 2 below: 2 finger widths Umbilicus: 3 below: 1.5 finger widths Umbilicus: 4 below: 0 finger widths Umbilicus: below: finger widths PT-OP-K Range of Motion Start: 09/18/19 19:26 Freq: Status: Active Protocol: Document 09/22/19 09:54 LRN (Rec: 09/22/19 20:12 LRN [id number]) Lumbar Spine Range of Motion Lumbar Spine Active Degrees Testing Position Standing Flexion 70 Extension 35 Lateral Flexion Left 20 Lateral Flexion Right 20 ROM Limitations Soft Tissue Tightness Hip Goniometric Range of Motion Hip Right Passive Testing Position Supine Straight Leg Raise 70 Abduction 20 Internal Rotation 40 External Rotation 65 Left Passive Testing Position Supine Straight Leg Raise 70 Abduction 30 Internal Rotation 46 External Rotation 75 PT-OP-M Strength Start: 09/18/19 19:26 Freq: Status: Active Protocol: Document 09/22/19 09:54 LRN (Rec: 09/22/19 20:13 LRN [id number]) Hip Strength Hip Manual Muscle Testing Right Flexion (L2) 5 Normal External Rotation 5 Normal Internal Rotation 3 Fair Comments 5/5 except as listed above. Left Flexion (L2) 5 Normal External Rotation 4 Good Internal Rotation 3 Fair Comments 5/5 except as listed above. PT-OP-Q Treatments Start: 09/18/19 19:26 Freq: Status: Active Protocol: Document 10/12/19 15:18 LRN (Rec: 10/12/19 16:36 LRN [id number]) Therapeutic Exercises Supine Exercises Hamstring stretch Supine Exercise Name Hamstring stretch w/strap Side bilateral Reps/Minutes 60 holds Piriformis stretch Supine Exercise Name Piriformis stretch (across chest & ankle over knee) Side bilateral Reps/Minutes 4' Hip ER stretch Supine Exercise Name Butterfly position f/b active stretch x 10 Side bilateral Reps/Minutes 3' TA Supine Exercise Name TA Reps/Minutes 10 holds x 6 Comments Training needed for approximating rectus with TA, pt only able to hold 8 Kegel Long Hold Supine Exercise Name Long Hold PF Reps/Minutes 10 holds x 20 Comments V cuing for pt to isolate ms from breath holding Sidelying Exercises TA tightening Sidelying Exercise Name TA tightening Side bilateral Reps/Minutes 10 hold x 10 Comments Training needed for getting into position with proper core control Self-Care/Home Management Treatment Education Patient Education Home Exercise Program Other Education Discussed bowel care. Handouts issued for bowel massage & foods. Activities Self-Care/Home Management Activities Issued & reviewed HEP for stretches in sup, sit, stand: hip ER, IR, hamstrings. PT-OP-T Assessment and Plan Start: 09/18/19 19:26 Freq: Status: Active Protocol: Document 10/12/19 15:18 LRN (Rec: 10/12/19 16:36 LRN [id number]) Physical Therapy Assessment Goals Four Impairment Pt substitutes TA, hips for PF contraction Short Term Goal (STG) Pt educated in isolating PF contraction. (10/12/19: Pt educated in isolation of PF, but pt needs cuing to breath). STG Duration 10/13/19 (10/12/19: Partially met goal) Assisted Goal (LTG) Pt will be able to isolate a PF contraction. LTG Duration 11/22/19 Three Impairment Poor abdominal control Short Term Goal (STG) Pt will be able to perform a Transverse abdominal contraction to help prevent doming and demonstrate proper body mechanics and breathing. STG Duration 10/20/19 (10/12/19: MET GOAL) Lead Caregiver Goal (LTG) Pt will demonstrate improved abdominal core control per reduction of her Rectus diastasis. LTG Duration 11/22/19 Two Impairment PF weakness (Anterior/lateral tello 0/5, Posterior 1/5) Short Term Goal (STG) Pt will demonstrate improved PF strength of at least 1/5 in all areas. STG Duration 10/20/19 Assisted Goal (LTG) Improve PF weakness to decrease frequency of urination. LTG Duration 11/22/19 One Impairment Lacks appropriate education & a self care HEP. Short Term Goal (STG) Pt will be educated in food/ fluid management to minimize bladder irritation & dec constipation onset. STG Duration 10/06/19 (10/12/19: MET GOAL) Lead Caregiver Goal (LTG) Pt will be educated in a self care HEP to manage her PF weakness. LTG Duration 11/22/19 (10/12/19: Progressing) Progress Towards Goals Progress Comments GOAL 1: STG: MET. LTG: PROGRESSING GOAL 3: STG: MET. GOAL 4: STG: PARTIALLY MET. Pt breath holding during TA. Assessment Summary Assessment Pt was able to isolate her PF contractions from her hip ADs & Gluts, but she tended to breath hold to hold contraction. Pt able to perform sup LE stretches properly and appeared to have a good understanding of sitting/standing stretches for hamstrings. PF resting tone has decreased, possibly due to stretching of hip muscles prior to EMG biofeedback session. Overall strength of contraction appears equal but overall lower in values due to contraction value is with isolated PF (except partially due to breath holding). Physical Therapy Plan Frequency and Duration Frequency of Treatment 1x/Week Duration of Treatment 8 weeks Plan of Care Start Date 09/22/19 Plan of Care End Date 11/22/19 Next Visit Focus/Plan Next Note Type Treatment Note Next Visit Plan TA strengthening progression, Strengthening hip IR's, L hip ER's, and trunk rotators, with self care program. K-tape to abdomen if pt finds it was helpful when given.
--- NOTE | 2019-10-19 18:18 | PT.OTN ---
Current Diagnoses Other female genital prolapse (10/19/19) Abnormal posture (10/19/19) Weakness (10/19/19) Physical Therapy Treatment Note PT-OP-A Visit Information Start: 09/18/19 19:26 Freq: Status: Active Protocol: Document 10/19/19 09:56 LRN (Rec: 10/19/19 10:37 LRN [id number]) Out-Patient Physical Therapy Visit Information Visit Information Visit Type Treatment Note Visit Start Time 09:56 Visit Stop Time 10:37 Total Visit Minutes 41 Visit Number 5 Evaluation Information Evaluation Date 09/22/19 Precautions Precautions 5 months ago. PT-OP-B Current Condition Start: 09/18/19 19:26 Freq: Status: Active Protocol: Document 09/22/19 09:54 LRN (Rec: 09/22/19 10:43 LRN [id number]) Current Condition History of Current Condition Onset Date 04/21/2019 Current Complaints No symptoms or pain. If full bladder and sneezes crosses legs. History of Current Condition Has had initially with all children full loss of bladder control a couple of weeks post - and a little leakage. Currently she is a mother of 3 children: 5 months old, 3 & 5 yr old. Pt states she requested PT because she is worried about stories of post mary problems. She states now when she does a sit-up her stomach bulges out. She states she leaks with bladder full and is not able to hold her urine as long as she previously did. Her activity level is that she walks with her children daily. She reports she defecates daily and sometimes must strain to empty. She takes a stool softner sporadically ( when needing them). 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 Treatment Goals Patient/Caregiver Goals Pt goal is to decrease times between voiding. Not have to cross legs with sneezing or coughing with variable bladder conditions (full vs empty). Get post- care. Learn how to prevent bladder leakage bladder problems in the future. And to get post mental health care (she has therapist currently). Prior Functional Status Baseline Function- ADL's Independent Baseline Function- Mobility Independent Baseline Function- Other Voiding 3-5 hrs between voiding. Current Functional Impairments (Reported) Functional Limitations- ADL's Increased frequency of voiding (every 2-3 hrs). Occasional constipation. Crosses legs with coughing or sneezing, possibly to avoid urinary leaking. Functional Limitations- Other Poor hydration. Personal Factors Other Personal Factors That May Effect Mother of 3 children under the Therapy/Recovery age of 6. Lives in [place]. PT-OP-C Subjective Start: 09/18/19 19:26 Freq: Status: Active Protocol: Document 10/19/19 09:56 LRN (Rec: 10/19/19 10:37 LRN [id number]) OP-PT Subjective Patient Comments Patient Comments No changes. States more aware of breath holding during exercise. PT-OP-I Pelvic Floor Start: 09/18/19 19:26 Freq: Status: Active Protocol: Document 10/12/19 15:18 LRN (Rec: 10/12/19 16:36 LRN [id number]) Pelvic Floor Assessment SEMG (uV) Baseline 3.8 Relaxation Good Holding Fair Stability of Hold Fair SEMG Stability of Rest Fair Comments Pelvic Floor Comments Pt in sweat pants, legs on bolster. Pt needed v. cuing to uncross legs. Long Holds: 10 reps: Work: 6. 9 mV's Rest: 3.2 mV's. 20 reps: 7.3 Work: mV's Rest: 3.2 mV's PT-OP-J Posture/Palpation/Skin Start: 09/18/19 19:26 Freq: Status: Active Protocol: Document 09/22/19 09:54 LRN (Rec: 09/22/19 20:12 LRN [id number]) Posture Evaluation Position Standing Evaluation View Posterior & Lateral L-Spine Posture Increased Lordosis,Flexible Scoliosis on (L) Pelvis Posture Anteriorly Tilted Palpation Assessment Location Abdomen Palpation Location Rectus Diastasis Palpation Details Umbilicus 5 above: Closed Umbilicus 4 above: 1 finger width (~2.5 cm) Umbilicus 3 above: 2.5 finger widths Umbilicus 2 above: 3 finger widths Umbilicus 1 above: 4 finger widths Umbilicus: 4 finger widths. Umbilicus: 1 below: 3.5 finger widths Umbilicus: 2 below: 2 finger widths Umbilicus: 3 below: 1.5 finger widths Umbilicus: 4 below: 0 finger widths Umbilicus: below: finger widths PT-OP-K Range of Motion Start: 09/18/19 19:26 Freq: Status: Active Protocol: Document 09/22/19 09:54 LRN (Rec: 09/22/19 20:12 LRN [id number]) Lumbar Spine Range of Motion Lumbar Spine Active Degrees Testing Position Standing Flexion 70 Extension 35 Lateral Flexion Left 20 Lateral Flexion Right 20 ROM Limitations Soft Tissue Tightness Hip Goniometric Range of Motion Hip Right Passive Testing Position Supine Straight Leg Raise 70 Abduction 20 Internal Rotation 40 External Rotation 65 Left Passive Testing Position Supine Straight Leg Raise 70 Abduction 30 Internal Rotation 46 External Rotation 75 PT-OP-M Strength Start: 09/18/19 19:26 Freq: Status: Active Protocol: Document 09/22/19 09:54 LRN (Rec: 09/22/19 20:13 LRN [id number]) Hip Strength Hip Manual Muscle Testing Right Flexion (L2) 5 Normal External Rotation 5 Normal Internal Rotation 3 Fair Comments 5/5 except as listed above. Left Flexion (L2) 5 Normal External Rotation 4 Good Internal Rotation 3 Fair Comments 5/5 except as listed above. PT-OP-Q Treatments Start: 09/18/19 19:26 Freq: Status: Active Protocol: Document 10/19/19 09:56 LRN (Rec: 10/19/19 10:37 LRN [id number]) Therapeutic Exercises Supine Exercises TA Supine Exercise Name TA w/BRIONES & light cough Reps/Minutes 10 holds x 10 Comments Training needed for TA with cough, pt only able to hold 10 Sidelying Exercises Reverse Clam Sidelying Exercise Name Reverse Clamshell w/TA & proper breathing Side bilateral Comments 10x 3 Clamshell Sidelying Exercise Name Clamshell w/TA & proper breathing Side bilateral Reps/Minutes 10x 3 Other Exercises 4 Pt TA Other Exercise Name 4 Pt - TA contraction Reps/Minutes 10 hold, 10x Therapeutic Activity Therapeutic Activity Sit<>Supine Name Sit<>Supine with LUmbar strap for core support Reps/Minutes 4' Comments Pt needed training to not breath hold. Self-Care/Home Management Treatment Education Patient Education Home Exercise Program Other Education Educated pt in supine trunk rotation w/TA contraction. Activities Self-Care/Home Management Activities Issued & reviewed HEP for strengthening Hip ER & IR's. PT-OP-T Assessment and Plan Start: 09/18/19 19:26 Freq: Status: Active Protocol: Document 10/19/19 09:56 LRN (Rec: 10/19/19 10:37 LRN [id number]) Physical Therapy Assessment Goals Four Impairment Pt substitutes TA, hips for PF contraction Short Term Goal (STG) Pt educated in isolating PF contraction. STG Duration 10/13/19 (10/19/19: MET GOAL) Alf Goal (LTG) Pt will be able to isolate a PF contraction. LTG Duration 11/22/19 Three Impairment Poor abdominal control Short Term Goal (STG) Pt will be able to perform a Transverse abdominal contraction to help prevent doming and demonstrate proper body mechanics and breathing. STG Duration 10/20/19 (10/19/19: MET GOAL) Continuity Tester Goal (LTG) Pt will demonstrate improved abdominal core control per reduction of her Rectus diastasis. LTG Duration 11/22/19 Two Impairment PF weakness (Anterior/lateral tello 0/5, Posterior 1/5) Short Term Goal (STG) Pt will demonstrate improved PF strength of at least 1/5 in all areas. STG Duration 10/20/19 Alf Goal (LTG) Improve PF weakness to decrease frequency of urination. LTG Duration 11/22/19 One Impairment Lacks appropriate education & a self care HEP. Short Term Goal (STG) Pt will be educated in food/ fluid management to minimize bladder irritation & dec constipation onset. STG Duration 10/06/19 (10/12/19: MET GOAL) Alf Goal (LTG) Pt will be educated in a self care HEP to manage her PF weakness. LTG Duration 11/22/19 (10/12/19: Progressing) Progress Towards Goals Progress Comments Goal 3: STG: MET GOAL Goal 4: STG: MET GOAL Assessment Summary Assessment Pt is able to isolate a PF contraction from hip ADs, Gluts & breath holding with intial verbal reminder. Pt weak in hips with c/o burning pain in hips after rotation ex 's 10x 3 reps. Physical Therapy Plan Frequency and Duration Frequency of Treatment 1x/Week Duration of Treatment 8 weeks Plan of Care Start Date 09/22/19 Plan of Care End Date 11/22/19 Next Visit Focus/Plan Next Note Type Treatment Note Next Visit Plan Recheck PF tone due to frequency of urination complaints. TA strengthening progression - roll in/outs, Review & cont strengthening hip IR's, L hip ER's & trunk rotators. K-tape to abdomen if pt finds it was helpful when given. PF strengthening
--- NOTE | 2019-10-19 18:25 | PT.OTN ---
Current Diagnoses Other female genital prolapse (10/19/19) Abnormal posture (10/19/19) Weakness (10/19/19) Physical Therapy Treatment Note PT-OP-A Visit Information Start: 09/18/19 19:26 Freq: Status: Active Protocol: Document 10/19/19 09:56 LRN (Rec: 10/19/19 10:37 LRN [id number]) Out-Patient Physical Therapy Visit Information Visit Information Visit Type Treatment Note Visit Start Time 09:56 Visit Stop Time 10:37 Total Visit Minutes 41 Visit Number 5 Evaluation Information Evaluation Date 09/22/19 Precautions Precautions 5 months ago. PT-OP-B Current Condition Start: 09/18/19 19:26 Freq: Status: Active Protocol: Document 09/22/19 09:54 LRN (Rec: 09/22/19 10:43 LRN [id number]) Current Condition History of Current Condition Onset Date 04/21/2019 Current Complaints No symptoms or pain. If full bladder and sneezes crosses legs. History of Current Condition Has had initially with all children full loss of bladder control a couple of weeks post - and a little leakage. Currently she is a mother of 3 children: 5 months old, 3 & 5 yr old. Pt states she requested PT because she is worried about stories of post mary problems. She states now when she does a sit-up her stomach bulges out. She states she leaks with bladder full and is not able to hold her urine as long as she previously did. Her activity level is that she walks with her children daily. She reports she defecates daily and sometimes must strain to empty. She takes a stool softner sporadically ( when needing them). 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 Treatment Goals Patient/Caregiver Goals Pt goal is to decrease times between voiding. Not have to cross legs with sneezing or coughing with variable bladder conditions (full vs empty). Get post- care. Learn how to prevent bladder leakage bladder problems in the future. And to get post mental health care (she has therapist currently). Prior Functional Status Baseline Function- ADL's Independent Baseline Function- Mobility Independent Baseline Function- Other Voiding 3-5 hrs between voiding. Current Functional Impairments (Reported) Functional Limitations- ADL's Increased frequency of voiding (every 2-3 hrs). Occasional constipation. Crosses legs with coughing or sneezing, possibly to avoid urinary leaking. Functional Limitations- Other Poor hydration. Personal Factors Other Personal Factors That May Effect Mother of 3 children under the Therapy/Recovery age of 6. Lives in [place]. PT-OP-C Subjective Start: 09/18/19 19:26 Freq: Status: Active Protocol: Document 10/19/19 09:56 LRN (Rec: 10/19/19 10:37 LRN [id number]) OP-PT Subjective Patient Comments Patient Comments No changes. States more aware of breath holding during exercise. PT-OP-I Pelvic Floor Start: 09/18/19 19:26 Freq: Status: Active Protocol: Document 10/12/19 15:18 LRN (Rec: 10/12/19 16:36 LRN [id number]) Pelvic Floor Assessment SEMG (uV) Baseline 3.8 Relaxation Good Holding Fair Stability of Hold Fair SEMG Stability of Rest Fair Comments Pelvic Floor Comments Pt in sweat pants, legs on bolster. Pt needed v. cuing to uncross legs. Long Holds: 10 reps: Work: 6. 9 mV's Rest: 3.2 mV's. 20 reps: 7.3 Work: mV's Rest: 3.2 mV's PT-OP-J Posture/Palpation/Skin Start: 09/18/19 19:26 Freq: Status: Active Protocol: Document 10/19/19 09:56 LRN (Rec: 10/19/19 18:23 LRN [id number]) Palpation Assessment Location Abdomen Palpation Location Rectus Diastasis Palpation Details Umbilicus 5 above: Closed Umbilicus 4 above: 1 finger width (~2.5 cm) Umbilicus 3 above: 2.5 finger widths Umbilicus 2 above: 2.5 finger widths Umbilicus 1 above: 4 finger widths Umbilicus: 3.5 finger widths. Umbilicus: 1 below: 2.5 finger widths Umbilicus: 2 below: 2.5 finger widths Umbilicus: 3 below: 1.5 finger widths Umbilicus: 4 below: 0 finger widths PT-OP-K Range of Motion Start: 09/18/19 19:26 Freq: Status: Active Protocol: Document 09/22/19 09:54 LRN (Rec: 09/22/19 20:12 LRN [id number]) Lumbar Spine Range of Motion Lumbar Spine Active Degrees Testing Position Standing Flexion 70 Extension 35 Lateral Flexion Left 20 Lateral Flexion Right 20 ROM Limitations Soft Tissue Tightness Hip Goniometric Range of Motion Hip Right Passive Testing Position Supine Straight Leg Raise 70 Abduction 20 Internal Rotation 40 External Rotation 65 Left Passive Testing Position Supine Straight Leg Raise 70 Abduction 30 Internal Rotation 46 External Rotation 75 PT-OP-M Strength Start: 09/18/19 19:26 Freq: Status: Active Protocol: Document 09/22/19 09:54 LRN (Rec: 09/22/19 20:13 LRN [id number]) Hip Strength Hip Manual Muscle Testing Right Flexion (L2) 5 Normal External Rotation 5 Normal Internal Rotation 3 Fair Comments 5/5 except as listed above. Left Flexion (L2) 5 Normal External Rotation 4 Good Internal Rotation 3 Fair Comments 5/5 except as listed above. PT-OP-Q Treatments Start: 09/18/19 19:26 Freq: Status: Active Protocol: Document 10/19/19 09:56 LRN (Rec: 10/19/19 10:37 LRN [id number]) Therapeutic Exercises Supine Exercises Head lift Supine Exercise Name Head lift for abdominal strengthening Reps/Minutes 10x LTR Supine Exercise Name LTR Side bilateral Reps/Minutes 10x TA Supine Exercise Name TA w/BRIONES & light cough Reps/Minutes 10 holds x 10 Comments Training needed for TA with cough, pt only able to hold 10 Sidelying Exercises Reverse Clam Sidelying Exercise Name Reverse Clamshell w/TA & proper breathing Side bilateral Comments 10x 3 Clamshell Sidelying Exercise Name Clamshell w/TA & proper breathing Side bilateral Reps/Minutes 10x 3 Other Exercises 4 Pt TA Other Exercise Name 4 Pt - TA contraction Reps/Minutes 10 hold, 10x Therapeutic Activity Therapeutic Activity Sit<>Supine Name Sit<>Supine with LUmbar strap for core support Reps/Minutes 4' Comments Pt needed training to not breath hold. Self-Care/Home Management Treatment Education Patient Education Home Exercise Program Other Education Educated pt in supine trunk rotation w/TA contraction. Activities Self-Care/Home Management Activities Issued & reviewed HEP for strengthening Hip ER & IR's. PT-OP-T Assessment and Plan Start: 09/18/19 19:26 Freq: Status: Active Protocol: Document 10/19/19 09:56 LRN (Rec: 10/19/19 10:37 LRN [id number]) Physical Therapy Assessment Goals Four Impairment Pt substitutes TA, hips for PF contraction Short Term Goal (STG) Pt educated in isolating PF contraction. STG Duration 10/13/19 (10/19/19: MET GOAL) Detention Goal (LTG) Pt will be able to isolate a PF contraction. LTG Duration 11/22/19 Three Impairment Poor abdominal control Short Term Goal (STG) Pt will be able to perform a Transverse abdominal contraction to help prevent doming and demonstrate proper body mechanics and breathing. STG Duration 10/20/19 (10/19/19: MET GOAL) Detention Goal (LTG) Pt will demonstrate improved abdominal core control per reduction of her Rectus diastasis. LTG Duration 11/22/19 Two Impairment PF weakness (Anterior/lateral tello 0/5, Posterior 1/5) Short Term Goal (STG) Pt will demonstrate improved PF strength of at least 1/5 in all areas. STG Duration 10/20/19 Eap Clinician Goal (LTG) Improve PF weakness to decrease frequency of urination. LTG Duration 11/22/19 One Impairment Lacks appropriate education & a self care HEP. Short Term Goal (STG) Pt will be educated in food/ fluid management to minimize bladder irritation & dec constipation onset. STG Duration 10/06/19 (10/12/19: MET GOAL) Detention Goal (LTG) Pt will be educated in a self care HEP to manage her PF weakness. LTG Duration 11/22/19 (10/12/19: Progressing) Progress Towards Goals Progress Comments Goal 3: STG: MET GOAL Goal 4: STG: MET GOAL Assessment Summary Assessment Pt is able to isolate a PF contraction from hip ADs, Gluts & breath holding with intial verbal reminder. Pt weak in hips with c/o burning pain in hips after rotation ex 's 10x 3 reps. Physical Therapy Plan Frequency and Duration Frequency of Treatment 1x/Week Duration of Treatment 8 weeks Plan of Care Start Date 09/22/19 Plan of Care End Date 11/22/19 Next Visit Focus/Plan Next Note Type Treatment Note Next Visit Plan Recheck PF tone due to frequency of urination complaints. TA strengthening progression - roll in/outs, Review & cont strengthening hip IR's, L hip ER's & trunk rotators. K-tape to abdomen if pt finds it was helpful when given. PF strengthening
--- NOTE | 2019-10-26 15:49 | PT-OP ANOTE ---
Pt attended appt but was not seen due to her change in insurance carrier and fear of denial without approval. Will continue approved for therapy.
--- NOTE | 2019-11-02 19:45 | PT.OTN ---
Current Diagnoses Other female genital prolapse (11/02/19) Abnormal posture (11/02/19) Weakness (11/02/19) Physical Therapy Treatment Note PT-OP-A Visit Information Start: 09/18/19 19:26 Freq: Status: Active Protocol: Document 11/02/19 09:51 LRN (Rec: 11/02/19 10:35 LRN [id number]) Out-Patient Physical Therapy Visit Information Visit Information Visit Type Treatment Note Visit Start Time 09:51 Visit Stop Time 10:35 Total Visit Minutes 44 Visit Number 6 Evaluation Information Evaluation Date 09/22/19 Precautions Precautions 5 months ago. PT-OP-B Current Condition Start: 09/18/19 19:26 Freq: Status: Active Protocol: Document 09/22/19 09:54 LRN (Rec: 09/22/19 10:43 LRN [id number]) Current Condition History of Current Condition Onset Date 04/21/2019 Current Complaints No symptoms or pain. If full bladder and sneezes crosses legs. History of Current Condition Has had initially with all children full loss of bladder control a couple of weeks post - and a little leakage. Currently she is a mother of 3 children: 5 months old, 3 & 5 yr old. Pt states she requested PT because she is worried about stories of post mary problems. She states now when she does a sit-up her stomach bulges out. She states she leaks with bladder full and is not able to hold her urine as long as she previously did. Her activity level is that she walks with her children daily. She reports she defecates daily and sometimes must strain to empty. She takes a stool softner sporadically ( when needing them). 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 Treatment Goals Patient/Caregiver Goals Pt goal is to decrease times between voiding. Not have to cross legs with sneezing or coughing with variable bladder conditions (full vs empty). Get post- care. Learn how to prevent bladder leakage bladder problems in the future. And to get post mental health care (she has therapist currently). Prior Functional Status Baseline Function- ADL's Independent Baseline Function- Mobility Independent Baseline Function- Other Voiding 3-5 hrs between voiding. Current Functional Impairments (Reported) Functional Limitations- ADL's Increased frequency of voiding (every 2-3 hrs). Occasional constipation. Crosses legs with coughing or sneezing, possibly to avoid urinary leaking. Functional Limitations- Other Poor hydration. Personal Factors Other Personal Factors That May Effect Mother of 3 children under the Therapy/Recovery age of 6. Lives in [place]. PT-OP-C Subjective Start: 09/18/19 19:26 Freq: Status: Active Protocol: Document 11/02/19 09:51 LRN (Rec: 11/02/19 10:35 LRN [id number]) OP-PT Subjective Patient Comments Patient Comments New insurance CHANGED, so now she must meet deductible so she requests lessening # of visits. PT-OP-I Pelvic Floor Start: 09/18/19 19:26 Freq: Status: Active Protocol: Document 11/02/19 09:51 LRN (Rec: 11/02/19 19:20 LRN [id number]) Pelvic Floor Assessment Pelvic Clock Pelvic Clock Other Tenderness and tightness of Pelvic Clock 6. Prolapse Cystocele Grade 2 Rectocele Grade 2 Contraction Ability Manual Muscle Testing Left 0 Manual Muscle Testing Right 1 Manual Muscle Testing Anterior 0 Manual Muscle Testing Posterior 2 Muscle Endurance (Seconds) 4 Number of Quick Contractions In 10 0 Seconds PT-OP-J Posture/Palpation/Skin Start: 09/18/19 19:26 Freq: Status: Active Protocol: Document 10/19/19 09:56 LRN (Rec: 10/19/19 18:23 LRN [id number]) Palpation Assessment Location Abdomen Palpation Location Rectus Diastasis Palpation Details Umbilicus 5 above: Closed Umbilicus 4 above: 1 finger width (~2.5 cm) Umbilicus 3 above: 2.5 finger widths Umbilicus 2 above: 2.5 finger widths Umbilicus 1 above: 4 finger widths Umbilicus: 3.5 finger widths. Umbilicus: 1 below: 2.5 finger widths Umbilicus: 2 below: 2.5 finger widths Umbilicus: 3 below: 1.5 finger widths Umbilicus: 4 below: 0 finger widths PT-OP-K Range of Motion Start: 09/18/19 19:26 Freq: Status: Active Protocol: Document 09/22/19 09:54 LRN (Rec: 09/22/19 20:12 LRN [id number]) Lumbar Spine Range of Motion Lumbar Spine Active Degrees Testing Position Standing Flexion 70 Extension 35 Lateral Flexion Left 20 Lateral Flexion Right 20 ROM Limitations Soft Tissue Tightness Hip Goniometric Range of Motion Hip Right Passive Testing Position Supine Straight Leg Raise 70 Abduction 20 Internal Rotation 40 External Rotation 65 Left Passive Testing Position Supine Straight Leg Raise 70 Abduction 30 Internal Rotation 46 External Rotation 75 PT-OP-M Strength Start: 09/18/19 19:26 Freq: Status: Active Protocol: Document 09/22/19 09:54 LRN (Rec: 09/22/19 20:13 LRN [id number]) Hip Strength Hip Manual Muscle Testing Right Flexion (L2) 5 Normal External Rotation 5 Normal Internal Rotation 3 Fair Comments 5/5 except as listed above. Left Flexion (L2) 5 Normal External Rotation 4 Good Internal Rotation 3 Fair Comments 5/5 except as listed above. PT-OP-Q Treatments Start: 09/18/19 19:26 Freq: Status: Active Protocol: Document 11/02/19 09:51 LRN (Rec: 11/02/19 10:35 LRN [id number]) Therapeutic Exercises Supine Exercises On wedge: PF contractions Supine Exercise Name On wedge: PF strengthening and awareness training Equipment Used Wedge Comments Pt able to feel lift on wedge for improved awareness. Deep Breathing Supine Exercise Name Deep breathing review Reps/Minutes 2' Kegels Supine Exercise Name Kegels Comments MMT assessed, pt able to perform in isolation of TA/ Gluts LE roll in/outs Supine Exercise Name LE roll in/outs with proper breathing and PF >< LTR Supine Exercise Name LTR Side bilateral Reps/Minutes 10x TA Supine Exercise Name TA contractions Reps/Minutes 5' Comments Pt needed initial cuing to perform correctly Kegel Long Hold Supine Exercise Name Kegel Long Hold Reps/Minutes 4' Comments Endurance assessed Kegel Quick Flicks Supine Exercise Name Kegel Quick Flicks Comments Endurance assessed Other Exercises 4 Pt TA Other Exercise Name 4 Pt - TA contraction Reps/Minutes 4' Self-Care/Home Management Treatment Education Patient Education Home Exercise Program Other Education Educated pt in self stretching of PF Clock 6 due to tightness and pain. Precautioned pt of increasing PF tone without working on relaxation with ex's and possible increase in pain as outcome. Activities Self-Care/Home Management Activities HEP issued: 4pt TA, Roll in/ outs Phase 1 & 2, Hands and knees push, and active trunk rotation in supine/sit/ resistive stand with T-Band. Issued: Lev 2 TBand with door strap issued. Reviewed and discussed at length pt's issued HEP for independent progression. PT-OP-T Assessment and Plan Start: 09/18/19 19:26 Freq: Status: Active Protocol: Document 11/02/19 09:51 LRN (Rec: 11/02/19 10:35 LRN [id number]) Physical Therapy Assessment Goals Four Impairment Pt substitutes TA, hips for PF contraction Short Term Goal (STG) Pt educated in isolating PF contraction. STG Duration 10/13/19 (10/19/19: MET GOAL) Asphalt Patcher Goal (LTG) Pt will be able to isolate a PF contraction. LTG Duration 11/22/19 (11/02/19: Appears MET GOAL) Three Impairment Poor abdominal control Short Term Goal (STG) Pt will be able to perform a Transverse abdominal contraction to help prevent doming and demonstrate proper body mechanics and breathing. STG Duration 10/20/19 (10/19/19: MET GOAL) Asphalt Patcher Goal (LTG) Pt will demonstrate improved abdominal core control per reduction of her Rectus diastasis. LTG Duration 11/22/19 Two Impairment PF weakness (Anterior/lateral tello 0/5, Posterior 1/5) Short Term Goal (STG) Pt will demonstrate improved PF strength of at least 1/5 in all areas. (11/02/19: PF strength of 0/5 anteriorly and L side; 1/5 R side, and 2/5 posteriorly) STG Duration 10/20/19 (11/02/19: Progressing) Senior Living Goal (LTG) Improve PF weakness to decrease frequency of urination. LTG Duration 11/22/19 One Impairment Lacks appropriate education & a self care HEP. Short Term Goal (STG) Pt will be educated in food/ fluid management to minimize bladder irritation & dec constipation onset. STG Duration 10/06/19 (10/12/19: MET GOAL) Asphalt Patcher Goal (LTG) Pt will be educated in a self care HEP to manage her PF weakness. LTG Duration 11/22/19 (11/02/19: Progressing) Assessment Summary Assessment Pt requesting extending visits to every 2 due to high insurance deductible. Pt assessed demonstrates very weak PF strength of 0/5 anteriorly and L side; 1/5 R side, and 2/5 posteriorly. She demonstrates no clitoral nod and minimal anal wink. Her frequency of urination probably due to weak PF and drop of bladder. She appears to have a rectocele and cystocele, stage 2. She has tenderness at 6 O'Clock of the Pelvic Floor Clock, probably due to repair of tears during childbearing. She was able to gain awareness of a PF contraction on a wedge and will benefit from doing PF ex' s with hips elevated. Pt is able to perform a TA and was noticed to automatically contract with transfers, but has difficulty when moving legs. Overall her TA appears to be strengthening. Physical Therapy Plan Frequency and Duration Frequency of Treatment 1x/Week Duration of Treatment 8 weeks Plan of Care Start Date 09/22/19 Plan of Care End Date 11/22/19 Next Visit Focus/Plan Next Note Type Treatment Note Next Visit Plan Check on frequency of urination complaints. Review previously issued HEP. TA roll in/out strengthening progression with emphasis on anterior and L lateral wall ( note all areas of PF clock weak), Review & cont strengthening hip IR's, L hip ER's & trunk rotators. K-tape to abdomen if pt finds it was helpful when given. Manual stretch to PF 6 O'Clock & facilitate PF contraction of lateral tello. PF strengthening
--- NOTE | 2019-12-01 15:10 | PT-OP ANOTE ---
Pt called to cancel.
--- NOTE | 2020-01-11 08:40 | PT.OPDS ---
Current Diagnoses Other female genital prolapse (11/02/19) Abnormal posture (11/02/19) Weakness (11/02/19) Visit Care Team Role Provider Type Deep Stewart MD Attending Provider Physician Primary Care Provider Referring Provider Specialty: Family Practice Address: [address] [place] [address], [id number] Email: [email or web address] Visit Number Visit Number 6 Discharge Summary PT-OP-B Current Condition Start: 09/18/19 19:26 Freq: Status: Active Protocol: Document 09/22/19 09:54 LRN (Rec: 09/22/19 10:43 LRN [id number]) Current Condition History of Current Condition Onset Date 04/21/2019 Current Complaints No symptoms or pain. If full bladder and sneezes crosses legs. History of Current Condition Has had initially with all children full loss of bladder control a couple of weeks post - and a little leakage. Currently she is a mother of 3 children: 5 months old, 3 & 5 yr old. Pt states she requested PT because she is worried about stories of post mary problems. She states now when she does a sit-up her stomach bulges out. She states she leaks with bladder full and is not able to hold her urine as long as she previously did. Her activity level is that she walks with her children daily. She reports she defecates daily and sometimes must strain to empty. She takes a stool softner sporadically ( when needing them). 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 Treatment Goals Patient/Caregiver Goals Pt goal is to decrease times between voiding. Not have to cross legs with sneezing or coughing with variable bladder conditions (full vs empty). Get post- care. Learn how to prevent bladder leakage bladder problems in the future. And to get post mental health care (she has therapist currently). Prior Functional Status Baseline Function- ADL's Independent Baseline Function- Mobility Independent Baseline Function- Other Voiding 3-5 hrs between voiding. Current Functional Impairments (Reported) Functional Limitations- ADL's Increased frequency of voiding (every 2-3 hrs). Occasional constipation. Crosses legs with coughing or sneezing, possibly to avoid urinary leaking. Functional Limitations- Other Poor hydration. Personal Factors Other Personal Factors That May Effect Mother of 3 children under the Therapy/Recovery age of 6. Lives in [place]. PT-OP-C Subjective Start: 09/18/19 19:26 Freq: Status: Active Protocol: Document 11/02/19 09:51 LRN (Rec: 11/02/19 10:35 LRN [id number]) OP-PT Subjective Patient Comments Patient Comments New insurance CHANGED, so now she must meet deductible so she requests lessening # of visits. PT-OP-I Pelvic Floor Start: 09/18/19 19:26 Freq: Status: Active Protocol: Document 11/02/19 09:51 LRN (Rec: 11/02/19 19:20 LRN [id number]) Pelvic Floor Assessment Pelvic Clock Pelvic Clock Other Tenderness and tightness of Pelvic Clock 6. Prolapse Cystocele Grade 2 Rectocele Grade 2 Contraction Ability Manual Muscle Testing Left 0 Manual Muscle Testing Right 1 Manual Muscle Testing Anterior 0 Manual Muscle Testing Posterior 2 Muscle Endurance (Seconds) 4 Number of Quick Contractions In 10 0 Seconds PT-OP-J Posture/Palpation/Skin Start: 09/18/19 19:26 Freq: Status: Active Protocol: Document 10/19/19 09:56 LRN (Rec: 10/19/19 18:23 LRN [id number]) Palpation Assessment Location Abdomen Palpation Location Rectus Diastasis Palpation Details Umbilicus 5 above: Closed Umbilicus 4 above: 1 finger width (~2.5 cm) Umbilicus 3 above: 2.5 finger widths Umbilicus 2 above: 2.5 finger widths Umbilicus 1 above: 4 finger widths Umbilicus: 3.5 finger widths. Umbilicus: 1 below: 2.5 finger widths Umbilicus: 2 below: 2.5 finger widths Umbilicus: 3 below: 1.5 finger widths Umbilicus: 4 below: 0 finger widths PT-OP-K Range of Motion Start: 09/18/19 19:26 Freq: Status: Active Protocol: Document 09/22/19 09:54 LRN (Rec: 09/22/19 20:12 LRN [id number]) Lumbar Spine Range of Motion Lumbar Spine Active Degrees Testing Position Standing Flexion 70 Extension 35 Lateral Flexion Left 20 Lateral Flexion Right 20 ROM Limitations Soft Tissue Tightness Hip Goniometric Range of Motion Hip Right Passive Testing Position Supine Straight Leg Raise 70 Abduction 20 Internal Rotation 40 External Rotation 65 Left Passive Testing Position Supine Straight Leg Raise 70 Abduction 30 Internal Rotation 46 External Rotation 75 PT-OP-M Strength Start: 09/18/19 19:26 Freq: Status: Active Protocol: Document 09/22/19 09:54 LRN (Rec: 09/22/19 20:13 LRN [id number]) Hip Strength Hip Manual Muscle Testing Right Flexion (L2) 5 Normal External Rotation 5 Normal Internal Rotation 3 Fair Comments 5/5 except as listed above. Left Flexion (L2) 5 Normal External Rotation 4 Good Internal Rotation 3 Fair Comments 5/5 except as listed above. PT-OP-T Assessment and Plan Start: 09/18/19 19:26 Freq: Status: Active Protocol: Document 01/11/20 08:29 LRN (Rec: 01/11/20 08:37 LRN [id number]) Physical Therapy Assessment Goals Four Impairment Pt substitutes TA, hips for PF contraction Short Term Goal (STG) Pt educated in isolating PF contraction. STG Duration 10/13/19 (10/19/19: MET GOAL) Senior Living Goal (LTG) Pt will be able to isolate a PF contraction. LTG Duration 11/22/19 (11/02/19: Appears MET GOAL) Three Impairment Poor abdominal control Short Term Goal (STG) Pt will be able to perform a Transverse abdominal contraction to help prevent doming and demonstrate proper body mechanics and breathing. STG Duration 10/20/19 (10/19/19: MET GOAL) Strategic Marketing Associate Goal (LTG) Pt will demonstrate improved abdominal core control per reduction of her Rectus diastasis. LTG Duration 11/22/19 (01/11/20: NOT MET, EARLY DISCHARGE) Two Impairment PF weakness (Anterior/lateral tello 0/5, Posterior 1/5) Short Term Goal (STG) Pt will demonstrate improved PF strength of at least 1/5 in all areas. (11/02/19: PF strength of 0/5 anteriorly and L side; 1/5 R side, and 2/5 posteriorly) STG Duration 10/20/19 (01/11/20: NOT MET, EARLY DISCHARGE) Strategic Marketing Associate Goal (LTG) Improve PF weakness to decrease frequency of urination. LTG Duration 11/22/19 (01/11/20: NOT MET, EARLY DISCHARGE) One Impairment Lacks appropriate education & a self care HEP. Short Term Goal (STG) Pt will be educated in food/ fluid management to minimize bladder irritation & dec constipation onset. STG Duration 10/06/19 (10/12/19: MET GOAL) Strategic Marketing Associate Goal (LTG) Pt will be educated in a self care HEP to manage her PF weakness. LTG Duration 11/22/19 (01/11/20: NOT MET, EARLY DISCHARGE) Assessment Summary Assessment Pt was seen for 6 treatment visits and was able placed on a home ex program of core and pelvic floor strengthening exercises. Message was received 01/05/20 that the pt was concerned of financial costs of therapy; therefore has chosen to wait a couple of months to resume. She is aware that she will need a new referral to resume therapy in the new year. She would like to continue therapy, and is planning on returning when she is economically able. Physical Therapy Plan Discharge Physical Therapy Discharge Reasons Patient Request Discharge Comments The pt will benefit from further therapy when she is financially able to resume. Thank you for your referral.
== END 2020-04-14 08:17 ==
LOC: PHYS 09:45
PROVIDERS: PCP Family Medicine; Referring Provider Family Medicine; Visit Provider Family Medicine
DX: N81.89 Other female genital prolapse (principal); R53.1 Weakness; R29.3 Abnormal posture
CPT/HCPCS: 97110; 97112; 97140; 97161; 97530; 97535